=== PATIENT | female | born 2000 | race Two or more races ===

== ENCOUNTER → 2024-04-04 | Outpatient (CLI) | payer MEDICAID ==
[~2024-04-04] MED LIST: PREN-96 PO
[2024-04-04 10:38] LABS: Alanine Aminotransferase 22 U/L (7-40); Albumin 3.8 g/dL (3.2-4.8); Anion Gap 9 (5-15); Aspartate Aminotransferase 20 U/L (13-40); BUN/Creatinine Ratio 9.3 (10.0-20.0); Calcium 9.2 mg/dL (8.7-10.4); Carbon Dioxide 22 mmol/L (20-31); Glucose 80 mg/dL (74-106); Sodium 138 mmol/L (136-145)
[2024-04-04 10:39] LABS: Bilirubin, Total 0.3 mg/dL (0.2-1.0); Total Protein 6.6 g/dL (5.7-8.2)
[2024-04-04 10:49] LABS: Alkaline Phosphatase 144 U/L (46-116); Blood Urea Nitrogen 5 mg/dL (9-23); Chloride 107 mmol/L (98-107); Cholesterol 212 mg/dL (< 200); HDL Cholesterol 74 mg/dL (40-59); LDL Cholesterol 109 mg/dL (< 100); Potassium 3.5 mmol/L (3.5-5.1); Triglycerides 204 mg/dL (< 150)
[2024-04-05 09:50] LABS: Basophils # (auto) 0 10 ^3/uL (0-0.2); Eosinophils # (auto) 0 10 ^3/uL (0-0.8); Eosinophils % (auto) 0.5 % (0.0-7.0); Hematocrit 36.3 % (36.0-46.0); Monocytes # (auto) 0.5 10 ^3/uL (0-1.3)
[2024-04-05 09:51] LABS: Basophils % (auto) 0.2 % (0.0-2.0); Hemoglobin 11.7 g/dL (12.2-16.2); Lymphocytes # (auto) 1.3 10 ^3/uL (0.4-5.4); Lymphocytes % (auto) 17.4 % (10.0-50.0); Mean Corpuscular Hemoglobin 25.1 pg (28.0-32.0); Mean Corpuscular Hgb Conc. 32.2 g/dL (32.0-36.0); Mean Corpuscular Volume 78.1 fL (80.0-100.0); Monocytes % (auto) 6.7 % (0.0-12.0); Neutrophils # (auto) 5.4 10 ^3/uL (1.6-8.6); Neutrophils % (auto) 75.2 % (37.0-80.0); Platelet Count (auto) 299 10^3/uL (140-450); Red Blood Cells 4.65 10^6/uL (4.0-5.20); White Blood Cell 7.2 10^3/uL (4.4-10.8)
[2024-04-05 10:23] LABS: Thyroid Stimulating Hormone 0.64 uIU/mL (0.55-4.78)
[2024-04-05 11:36] LABS: Amphetamine Screen, Urine Neg (NEGATIVE); Barbiturate Scree,Urine Neg (NEGATIVE); Cannabinoid Screen, Urine Neg (NEGATIVE); Opiate Scree,Urine Neg (NEGATIVE); Phencyclidine Screen, Urine Neg (NEGATIVE)
[2024-04-05 11:37] LABS: Benzodiazephine Screen, Urine Neg (NEGATIVE); Cocaine Screen, Urine Neg (NEGATIVE)
[2024-04-06 08:06] LABS: Varicella Zoster IgG Antibody Reactive (Non Reactive)
[2024-04-06 17:06] LABS: Chlamydia Trachomatis, NAA Negative (Negative); Neisseria gonorrhoeae, NAA Negative (Negative)
[2024-04-07 14:06] LABS: QuantiFERON-TB Gold Plus Negative (Negative)
== END | disposition home or self-care (01) ==
LOC: LAB 06:43
PROVIDERS: ATTEND Obstetrics & Gynecology
DX: Z34.80 Encounter for supervision of other normal pregnancy, unspecified trimester (principal); Z31.430 Encounter of female for testing for genetic disease carrier status for procreative management; Z36.0 Encounter for antenatal screening for chromosomal anomalies; N39.0 Urinary tract infection, site not specified
CPT/HCPCS: 36415; 80053; 80061; 80307; 82951; 83036; 84439; 84443; 84702; 85025; 86592; 86703; 86762; 86787; 86850; 86900; 86901; 87086; 87340; 87902

== ENCOUNTER 2024-04-08 09:30 | Observation (INO) | payer MEDICAID ==
--- NOTE | 2024-04-08 10:31 | DVH ---
BIOPHYSICAL PROFILE HISTORY: Hx IUFD, RPR+, Hx pre-eclampsia TECHNIQUE: Multiple transabdominal real-time grayscale sonographic images through the gravid uterus of the fetus with duplex Doppler color flow and M-mode spectral analysis FINDINGS: BIOPHYSICAL PROFILE: breathing score: 2 movement score: 2 tone score: 2 Quantitative AMBER score: 2 (AMBER: 14.0 Cm.) Total score: 8/8 Single live fetus in breech presentation. heart rate 164 beats per minute. Posterior placenta without previa or abruption IMPRESSION: 1. Biophysical profile score: 8/8 HS:Y
[2024-04-08] MEDS ORDERED: PREN-96 PO (11:14)
--- NOTE | 2024-04-08 12:56 | DVHDS2 ---
Physician Discharge Progress N Final Diagnosis: Hx IUFD, RPR+, Hx pre-eclampsia Operations or Procedures: Operations or Procedures NST/BPP/AMBER all WNL Condition on Discharge: Stable Disposition: Home Discharge Instructions: Diet: Consistent carbohydrate Activity: Light activity Follow Up/Referral: As scheduled Medications: N/A Follow Up Care: Discharge Statement: "Patient was advised to return to the ER or call 911 if any headaches, dizziness, shortness of breath, chest pain, abdominal pain, bleeding, fevers, or worsening of medical condition. Patient was counseled about treatment plan, medications, possible side effects, patientverbalized understanding. All questions were answered to the best of my ability. This discharge took greater then 30 minutes in planning, reviewing documentation, counseling the patient, and discussing with other team members." SILVIA ANTON DO Apr 08, 2024 12:56
== END 2024-04-08 11:33 | disposition home or self-care (01) ==
LOC: LDRP 09:36 → UNDOADMOB 09:36 → LDRP 09:44 → UNDODISOB 11:33
PROVIDERS: ADMIT Obstetrics & Gynecology; ATTEND Obstetrics & Gynecology
DX: O09.293 Supervision of pregnancy with other poor reproductive or obstetric history, third trimester (principal); O14.93 Unspecified pre-eclampsia, third trimester; O62.9 Abnormality of forces of labor, unspecified; Z3A.31 31 weeks gestation of pregnancy; Z79.899 Other long term (current) drug therapy; Z87.891 Personal history of nicotine dependence
CPT/HCPCS: 59025; 76818; 81002; 94760; G0378

== ENCOUNTER 2024-04-15 11:19 | Observation (INO) | payer MEDICAID ==
[~2024-04-15] VITALS: Ht 163 cm; Wt 2.6 kg
--- NOTE | 2024-04-15 16:50 | DVH ---
BIOPHYSICAL PROFILE HISTORY: Hx IUFD TECHNIQUE: Multiple transabdominal real-time grayscale sonographic images through the gravid uterus of the fetus with duplex Doppler color flow and M-mode spectral analysis FINDINGS: BIOPHYSICAL PROFILE: breathing score: 2 movement score: 2 tone score: 2 Quantitative AMBER score: 2 (AMBER: 15.1 Cm.) Total score: 8/8 Single live fetus in breech presentation. heart rate 153 beats per minute. Posterior placenta without previa or abruption Double nuchal cord is present. IMPRESSION: 1. Biophysical profile score: 8/8 2. Double nuchal cord. HS:Y
--- NOTE | 2024-04-16 13:24 | DVHDS2 ---
Physician Discharge Progress N Final Diagnosis: iufd Operations or Procedures: Operations or Procedures nst,sono Condition on Discharge: Good Disposition: Home Discharge Instructions: Diet: Regular Activity: Light activity Medications: na Follow Up Care: Specialist: 3d Discharge Statement: "Patient was advised to return to the ER or call 911 if any headaches, dizziness, shortness of breath, chest pain, abdominal pain, bleeding, fevers, or worsening of medical condition. Patient was counseled about treatment plan, medications, possible side effects, patientverbalized understanding. All questions were answered to the best of my ability. This discharge took greater then 30 minutes in planning, reviewing documentation, counseling the patient, and discussing with other team members." JEREMY SUAREZ DO Apr 16, 2024 13:24
== END 2024-04-15 17:20 | disposition home or self-care (01) ==
LOC: UNDOADMOB 16:05 → LDRP 16:05 → UNDODISOB 17:20
PROVIDERS: ADMIT Obstetrics & Gynecology; ATTEND Obstetrics & Gynecology
DX: O36.4XX0 Maternal care for intrauterine death, not applicable or unspecified (principal); Z98.890 Other specified postprocedural states; Z79.899 Other long term (current) drug therapy; Z3A.32 32 weeks gestation of pregnancy
CPT/HCPCS: 59025; 76818; 81002; 94760; G0378

== ENCOUNTER 2024-04-22 10:45 | Observation (INO) | payer MEDICAID ==
[~2024-04-22] VITALS: Ht 162.6 cm; Wt 109.8 kg
--- NOTE | 2024-04-22 11:54 | DVH ---
CLINICAL HISTORY: Hx of IUFD and Pre-eclampsia COMPARISON: US BIOPHYSICAL PROFILE on DOS: 04/15/24, US BIOPHYSICAL PROFILE on DOS: 04/08/24 TECHNIQUE: biophysical profile was performed. Transabdominal sonographic images of the fetus we re obtained. FINDINGS: The fetus is in cephalic position. heart rate measures 138 BPM. Amniotic fluid index measures 16.7 cm. The placenta is posterior in position. BPP profile is an overall score of 8/8, with 2/2 points for breathing, with at least one episode of breathing over a 30 second duration during a 30 minute observation, 2/2 points for m ovements, with 3 or more discrete body or limb movements, 2/2 points for tone, with one or more episodes of extremity extension with return to flexion, or opening and closing of hand, and 2/ 2 points for amniotic fluid, with at least 1 pocket of amniotic fluid that measures 2 cm in 2 perpend icular planes. IMPRESSION: BPP score of 8/8.
--- NOTE | 2024-04-22 13:19 | DVHDS2 ---
Physician Discharge Progress N Final Diagnosis: Hx of IUFD 3rd trim Operations or Procedures: Operations or Procedures NST/BPP/AMBER all WNL Condition on Discharge: Stable Disposition: Home Discharge Instructions: Diet: Regular Activity: Light activity Follow Up/Referral: As scheduled Medications: N/A Follow Up Care: Discharge Statement: "Patient was advised to return to the ER or call 911 if any headaches, dizziness, shortness of breath, chest pain, abdominal pain, bleeding, fevers, or worsening of medical condition. Patient was counseled about treatment plan, medications, possible side effects, patientverbalized understanding. All questions were answered to the best of my ability. This discharge took greater then 30 minutes in planning, reviewing documentation, counseling the patient, and discussing with other team members." SILVIA ANTON DO Apr 22, 2024 13:19
== END 2024-04-22 13:05 | disposition home or self-care (01) ==
LOC: UNDOADMOB 10:45 → LDRP 10:45 → UNDODISOB 13:05
PROVIDERS: ADMIT Obstetrics & Gynecology; ATTEND Obstetrics & Gynecology
DX: O62.9 Abnormality of forces of labor, unspecified (principal); Z3A.33 33 weeks gestation of pregnancy; Z79.899 Other long term (current) drug therapy; Z98.890 Other specified postprocedural states
CPT/HCPCS: 59025; 76818; 81002; 86780; 94760; G0378

== ENCOUNTER 2024-04-29 08:21 | Observation (INO) | payer MEDICAID ==
--- NOTE | 2024-05-03 10:40 | DVH ---
BIOPHYSICAL PROFILE HISTORY: Hx IUFD, pre E +RPR TECHNIQUE: Multiple transabdominal real-time grayscale sonographic images through the gravid uterus of the fetus with duplex Doppler color flow and M-mode spectral analysis FINDINGS: BIOPHYSICAL PROFILE: breathing score: 2 movement score: 2 tone score: 2 Quantitative AMBER score: 2 (AMBER: 16.7 Cm.) Total score: 8/8 Single live fetus in cephalic presentation. heart rate 149 beats per minute. Posterior placenta without previa or abruption Suggestion of nuchal cord. IMPRESSION: 1. Biophysical profile score: 8/8 2. Suggestion of nuchal cord. HS:Y
--- NOTE | 2024-05-03 13:55 | DVHDS2 ---
Physician Discharge Progress N Final Diagnosis: hx of iufd Operations or Procedures: Operations or Procedures nst,sono Condition on Discharge: Good Disposition: Home Discharge Instructions: Diet: Regular Activity: No Restrictions, As Tolerated Medications: na Follow Up Care: Specialist: 3d Discharge Statement: "Patient was advised to return to the ER or call 911 if any headaches, dizziness, shortness of breath, chest pain, abdominal pain, bleeding, fevers, or worsening of medical condition. Patient was counseled about treatment plan, medications, possible side effects, patientverbalized understanding. All questions were answered to the best of my ability. This discharge took greater then 30 minutes in planning, reviewing documentation, counseling the patient, and discussing with other team members." JEREMY SUAREZ DO May 03, 2024 13:55
== END 2024-05-03 11:51 | disposition home or self-care (01) ==
LOC: LDRP 05-03 09:40 → UNDOADMOB 05-03 09:40 → LDRP 05-03 10:07
PROVIDERS: ADMIT Obstetrics & Gynecology; ATTEND Obstetrics & Gynecology
DX: O26.893 Other specified pregnancy related conditions, third trimester (principal); R10.31 Right lower quadrant pain; Z3A.34 34 weeks gestation of pregnancy; Z98.890 Other specified postprocedural states; Z79.899 Other long term (current) drug therapy
CPT/HCPCS: 59025; 76818; 81002; 94760; G0378

== ENCOUNTER 2024-04-29 18:18 | Observation (INO) | payer MEDICAID ==
[~2024-04-29] VITALS: Ht 167.6 cm; Wt 120.9 kg
[2024-04-29 18:33] VITALS: BP 124/71; PULSE 86; RESP 18; O2SAT 96
--- NOTE | 2024-04-30 07:41 | DVHDS2 ---
Physician Discharge Progress N Final Diagnosis: abd pain Operations or Procedures: Operations or Procedures nst,sono Condition on Discharge: Good Disposition: Home Discharge Instructions: Diet: Regular Activity: No Restrictions, As Tolerated Medications: na Follow Up Care: Specialist: 3d Discharge Statement: "Patient was advised to return to the ER or call 911 if any headaches, dizziness, shortness of breath, chest pain, abdominal pain, bleeding, fevers, or worsening of medical condition. Patient was counseled about treatment plan, medications, possible side effects, patientverbalized understanding. All questions were answered to the best of my ability. This discharge took greater then 30 minutes in planning, reviewing documentation, counseling the patient, and discussing with other team members." JEREMY SUAREZ DO Apr 30, 2024 07:41
== END 2024-04-29 20:12 | disposition home or self-care (01) ==
LOC: ER 18:18 → LDRP 18:42
PROVIDERS: ADMIT Obstetrics & Gynecology; ATTEND Obstetrics & Gynecology
DX: O62.9 Abnormality of forces of labor, unspecified (principal); Z98.890 Other specified postprocedural states; Z79.899 Other long term (current) drug therapy; Z3A.29 29 weeks gestation of pregnancy
CPT/HCPCS: 59025; 81002; 94760; G0378

== ENCOUNTER → 2024-05-06 | Outpatient (CLI) | payer MEDICAID ==
[2024-05-06 12:40] LABS: Basophils # (auto) 0 10 ^3/uL (0-0.2); Basophils % (auto) 0.1 % (0.0-2.0); Eosinophils # (auto) 0 10 ^3/uL (0-0.8); Eosinophils % (auto) 0.7 % (0.0-7.0); Hematocrit 33.1 % (36.0-46.0); Lymphocytes # (auto) 1.4 10 ^3/uL (0.4-5.4); Mean Corpuscular Hemoglobin 25.6 pg (28.0-32.0); Mean Corpuscular Hgb Conc. 33.2 g/dL (32.0-36.0); Mean Corpuscular Volume 77.3 fL (80.0-100.0); Monocytes # (auto) 0.6 10 ^3/uL (0-1.3); Monocytes % (auto) 8.2 % (0.0-12.0); Neutrophils # (auto) 5.2 10 ^3/uL (1.6-8.6); Nucleated Red Blood Cells % 0.2 %; Platelet Count (auto) 285 10^3/uL (140-450); Red Blood Cells 4.28 10^6/uL (4.0-5.20); Red Cell Distribution Width 16.9 % (11.8-14.3); White Blood Cell 7.3 10^3/uL (4.4-10.8)
[2024-05-08 07:06] LABS: Chlamydia Trachomatis, NAA Negative (Negative); Neisseria gonorrhoeae, NAA Negative (Negative)
== END | disposition home or self-care (01) ==
LOC: LAB 11:21
PROVIDERS: ATTEND Obstetrics & Gynecology
DX: Z34.80 Encounter for supervision of other normal pregnancy, unspecified trimester (principal); Z72.89 Other problems related to lifestyle
CPT/HCPCS: 36415; 85025; 86592

== ENCOUNTER 2024-05-10 07:55 | Observation (INO) | payer MEDICAID ==
--- NOTE | 2024-05-10 09:13 | DVH ---
BIOPHYSICAL PROFILE HISTORY: Hx- IUFD,PreE TECHNIQUE: Multiple transabdominal real-time grayscale sonographic images through the gravid uterus of the fetus with duplex Doppler color flow and M-mode spectral analysis FINDINGS: BIOPHYSICAL PROFILE: breathing score: 2 movement score: 2 tone score: 2 Quantitative AMBER score: 2 (AMBER: 14.7 Cm.) Total score: 8/8 The cervix is not seen. Single live fetus in cephalic presentation. heart rate 152 beats per minute. Grade 2 posterior placenta without previa or abruption Biophysical profile score 8/8 corresponding to an KIKE of 06/10/24 Possible nuchal cord is visualized. IMPRESSION: Biophysical profile score: 8/8 Possible nuchal cord is visualized.
--- NOTE | 2024-05-10 10:37 | DVHDS2 ---
Physician Discharge Progress N Final Diagnosis: Hx of IUFD Gestational HTN Nuchal cord suspected Secondary Diagnosis: Encounter for surveillance Operations or Procedures: Operations or Procedures NST/BPP AMBER all WNL Commentary: Commentary [address] [address] Ph: [phone] DIAGNOSTIC IMAGING Diagnostic Imaging Report : [id number] Signed PATIENT: CAROLYN OBRIENACCT: [id number] UNIT: [id number] : 2000 LOC: [facility] ROOM / BED: TRIAGE1 / A AGE / SEX: 23 / F ADM STATUS: ADM IN SERVICE [id number] ORDERING PHYSICIAN: SILVIA ANTON DO PROCEDURE(s): BPP - BIOPHYSICAL PROFILE REASON: Hx- IUFD,PreE ORDER NUMBER(s): [id number], ACCESSION NUMBER(s): [id number] BIOPHYSICAL PROFILE HISTORY: Hx- IUFD,PreE TECHNIQUE: Multiple transabdominal real-time grayscale sonographic images through the gravid uterus of the fetus with duplex Doppler color flow and M-mode spectral analysis FINDINGS: BIOPHYSICAL PROFILE: breathing score: 2 movement score: 2 tone score: 2 Quantitative AMBER score: 2 (AMBER: 14.7 Cm.) Total score: 8/8 The cervix is not seen. Single live fetus in cephalic presentation. heart rate 152 beats per minute. Grade 2 posterior placenta without previa or abruption Biophysical profile score 8/8 corresponding to an KIKE of 06/10/24 Possible nuchal cord is visualized. IMPRESSION: Biophysical profile score: 8/8 Possible nuchal cord is visualized. Condition on Discharge: Stable Disposition: Home Discharge Instructions: Diet: Regular Activity: No Restrictions, As Tolerated Follow Up/Referral: as scheduled Medications: N/A Follow Up Care: Discharge Statement: "Patient was advised to return to the ER or call 911 if any headaches, dizziness, shortness of breath, chest pain, abdominal pain, bleeding, fevers, or worsening of medical condition. Patient was counseled about treatment plan, medications, possible side effects, patientverbalized understanding. All questions were answered to the best of my ability. This discharge took greater then 30 minutes in planning, reviewing documentation, counseling the patient, and discussing with other team members." SILVIA ANTON DO May 10, 2024 10:36
== END 2024-05-10 09:30 | disposition home or self-care (01) ==
LOC: LDRP 07:55
PROVIDERS: ADMIT Obstetrics & Gynecology; ATTEND Obstetrics & Gynecology
DX: O13.3 Gestational [pregnancy-induced] hypertension without significant proteinuria, third trimester (principal); O36.4XX0 Maternal care for intrauterine death, not applicable or unspecified; O26.893 Other specified pregnancy related conditions, third trimester; N89.8 Other specified noninflammatory disorders of vagina; O14.93 Unspecified pre-eclampsia, third trimester; Z3A.35 35 weeks gestation of pregnancy; Z79.899 Other long term (current) drug therapy
CPT/HCPCS: 59025; 76818; 81002; 94760; G0378

== ENCOUNTER 2024-05-14 10:40 | Observation (INO) | payer MEDICAID ==
--- NOTE | 2024-05-14 11:22 | DVH ---
BIOPHYSICAL PROFILE HISTORY: HX-IUFD, Pre-E, +RPR TECHNIQUE: Multiple transabdominal real-time grayscale sonographic images through the gravid uterus of the fetus with duplex Doppler color flow and M-mode spectral analysis FINDINGS: BIOPHYSICAL PROFILE: breathing score: 2 movement score: 2 tone score: 2 Quantitative AMBER score: 2 (AMBER: 13.1 Cm.) Total score: 8/8 Single live fetus incephalic presentation. heart rate 155 beats per minute. Posterior placenta which is low-lying, located 1.9 cm from the cervical os. Biophysical profile score 8/8 IMPRESSION: 1. Biophysical profile score: 8/8. Low-lying placenta located 1.9 cm from the cervical os.
--- NOTE | 2024-05-14 20:51 | DVHDS2 ---
Physician Discharge Progress N Final Diagnosis: low lying placenta Secondary Diagnosis: testing for NCx1 (+RPR this and treated) hx of IUFD and PreE with last Operations or Procedures: Operations or Procedures 23yo IUP@36.1wks, Denies UCs/LOF/VB/FONSECA/vision changes/RUQ pain. Endorses +FM. VSS UA wnl NST reactive (last 20 min) 1L LR IV bolus given for dehydration kick counts and Preeclampsia warning signs reviewed. PTL precautions given and when to return to the hospital. Other Interventions Other Interventions [place] [address] Ph: [phone] DIAGNOSTIC IMAGING Diagnostic Imaging Report : [id number] Signed PATIENT: HODAN OBRIENT: [id number] UNIT: [id number] : 2000 LOC: [facility] ROOM / BED: [facility] / A AGE / SEX: 23 / F ADM STATUS: ADM IN SERVICE [id number] ORDERING PHYSICIAN: YAQUELIN GRULLON CNM PROCEDURE(s): BPP - BIOPHYSICAL PROFILE REASON: HX-IUFD, Pre-E, +RPR ORDER NUMBER(s): [id number], ACCESSION NUMBER(s): [id number] BIOPHYSICAL PROFILE HISTORY: HX-IUFD, Pre-E, +RPR TECHNIQUE: Multiple transabdominal real-time grayscale sonographic images through the gravid uterus of the fetus with duplex Doppler color flow and M-mode spectral analysis FINDINGS: BIOPHYSICAL PROFILE: breathing score: 2 movement score: 2 tone score: 2 Quantitative AMBER score: 2 (AMBER: 13.1 Cm.) Total score: 8/8 Single live fetus incephalic presentation. heart rate 155 beats per minute. Posterior placenta which is low-lying, located 1.9 cm from the cervical os. Biophysical profile score 8/8 IMPRESSION: 1. Biophysical profile score: 8/8. Low-lying placenta located 1.9 cm from the cervical os. ATED BY: HERLINDA PASCUAL MD DICTATED DATE/TIME: 05/14/24 1120 SIGNED BY: HERLINDA PASCUAL MD SIGNED DATE/TIME: 05/14/24 1120 CC: Condition on Discharge: Stable Disposition: Home Discharge Instructions: Diet: Regular Activity: See Comment Activity comment: pelvic rest Medications: see med list Follow Up Care: Specialist: f/u in 3 days Discharge Statement: "Patient was advised to return to the ER or call 911 if any headaches, dizziness, shortness of breath, chest pain, abdominal pain, bleeding, fevers, or worsening of medical condition. Patient was counseled about treatment plan, medications, possible side effects, patientverbalized understanding. All questions were answered to the best of my ability. This discharge took greater then 30 minutes in planning, reviewing documentation, counseling the patient, and discussing with other team members." YAQUELIN GRULLON CNM May 14, 2024 20:51
== END 2024-05-14 13:39 | disposition home or self-care (01) ==
LOC: LDRP 10:40 → OBSVTOIN 10:42 → INTOOBSV 10:42
PROVIDERS: ADMIT Obstetrics & Gynecology; ATTEND Obstetrics & Gynecology
DX: O44.43 Low lying placenta NOS or without hemorrhage, third trimester (principal); Z3A.36 36 weeks gestation of pregnancy; Z79.899 Other long term (current) drug therapy; Z98.890 Other specified postprocedural states
CPT/HCPCS: 59025; 76818; 81002; 94760; 96360; 96361; G0378

== ENCOUNTER 2024-05-17 11:47 | Observation (INO) | payer MEDICAID ==
[2024-05-17] MEDS ORDERED: DOCU1CAP46 PO (13:22)
[2024-05-17] MEDS ORDERED: ASPI-543 PO (13:22)
[2024-05-17] MEDS ORDERED: MAGN1CAP5 (13:22)
--- NOTE | 2024-05-17 13:27 | DVH ---
BIOPHYSICAL PROFILE HISTORY: Historu FD, Pre Eclampsia Comparison Study: None available at time of dictation. TECHNIQUE: Multiple real-time grayscale sonographic images through the gravid uterus of the fetus wi th duplex Doppler color flow and M-mode spectral analysis FINDINGS: BIOPHYSICAL PROFILE: breathing score: 2 movement score: 2 tone score: 2 Quantitative AMBER score: 2 (AMBER: 16.6 Cm.) Total score: 8/8 The cervix is not seen. Single live fetus in cephalic presentation. heart rate 165 beats per minute. Posterior placenta without previa or abruption Biophysical profile score 8/8 corresponding to an KIKE of 06/10/24 IMPRESSION: Biophysical profile score: 8/8
--- NOTE | 2024-05-17 13:44 | DVHDS2 ---
Physician Discharge Progress N Final Diagnosis: hx of pih Operations or Procedures: Operations or Procedures nst,sono Condition on Discharge: Good Disposition: Home Discharge Instructions: Diet: Consistent carbohydrate Activity: No Restrictions, As Tolerated Medications: na Follow Up Care: Specialist: 3d Discharge Statement: "Patient was advised to return to the ER or call 911 if any headaches, dizziness, shortness of breath, chest pain, abdominal pain, bleeding, fevers, or worsening of medical condition. Patient was counseled about treatment plan, medications, possible side effects, patientverbalized understanding. All questions were answered to the best of my ability. This discharge took greater then 30 minutes in planning, reviewing documentati on, counseling the patient, and discussing with other team members." JEREMY SUAREZ DO May 17, 2024 13:44
== END 2024-05-17 14:00 | disposition home or self-care (01) ==
LOC: LDRP 11:47
PROVIDERS: ADMIT Obstetrics & Gynecology; ATTEND Obstetrics & Gynecology
DX: O13.3 Gestational [pregnancy-induced] hypertension without significant proteinuria, third trimester (principal); O62.9 Abnormality of forces of labor, unspecified; O35.8XX0 Maternal care for other (suspected) fetal abnormality and damage, not applicable or unspecified; Z3A.36 36 weeks gestation of pregnancy; Z79.899 Other long term (current) drug therapy
CPT/HCPCS: 59025; 76818; 81002; 94760; G0378

== ENCOUNTER 2024-05-21 13:52 | Observation (INO) | payer MEDICAID ==
[~2024-05-21 13:52] MED LIST changes: +ASPI-543 PO; +DOCU1CAP46 PO; +MAGN1CAP5
--- NOTE | 2024-05-21 14:48 | DVH ---
BIOPHYSICAL PROFILE HISTORY: IUFD/Positive RPR TECHNIQUE: Multiple transabdominal real-time grayscale sonographic images through the gravid uterus of the fetus with duplex Doppler color flow and M-mode spectral analysis FINDINGS: BIOPHYSICAL PROFILE: breathing score: 2 movement score: 2 tone score: 2 Quantitative AMBER score: 2 (AMBER: 15 Cm.) Total score: 8 The cervix not well visualized. Single live fetus in cephalic presentation. heart rate 137 beats per minute. Posterior placenta without previa or abruption IMPRESSION: Biophysical profile score: 8
--- NOTE | 2024-05-21 19:04 | DVHDS2 ---
Physician Discharge Progress N Final Diagnosis: testing for hx IUFD, preE, +RPR Operations or Procedures: Operations or Procedures 23yo IUP@38.1wks VSS NST reactive BPP wnl FKC/labor precautions reviewed Condition on Discharge: Stable Disposition: Home Discharge Instructions: Diet: Regular Activity: No Restrictions, As Tolerated Medications: see med list Follow Up Care: Specialist: f/u in 3 days Discharge Statement: "Patient was advised to return to the ER or call 911 if any headaches, dizziness, shortness of breath, chest pain, abdominal pain, bleeding, fevers, or worsening of medical condition. Patient was counseled about treatment plan, medications, possible side effects, patientverbalized understanding. All questions were answered to the best of my ability. This discharge took greater then 30 minutes in planning, reviewing documentation, counseling the patient, and discussing with other team members." YAQUELIN GRULLON CNM May 21, 2024 19:04
== END 2024-05-21 15:25 | disposition home or self-care (01) ==
LOC: LDRP 13:52 → UNDOADMOB 13:52 → LDRP 14:08 → UNDODISOB 15:25
PROVIDERS: ADMIT Obstetrics & Gynecology; ATTEND Obstetrics & Gynecology
DX: O62.9 Abnormality of forces of labor, unspecified (principal); Z98.890 Other specified postprocedural states; Z79.899 Other long term (current) drug therapy; Z3A.38 38 weeks gestation of pregnancy
CPT/HCPCS: 59025; 76818; 81002; 94760; G0378

== ENCOUNTER 2024-05-22 17:48 | Observation (INO) | payer MEDICAID ==
--- NOTE | 2024-05-22 19:01 | DVHDS2 ---
Physician Discharge Progress N Final Diagnosis: uterine cramps, resolved Operations or Procedures: Operations or Procedures S: 23yo IUP@38.2wks presents to OB triage today with c/o uterine cramping this morning. She also had scant vaginal bleeding last night after sex, denies any VB today. Denies uterine cramps while in OB triage. Pt has hx of IUFD at 39wks, preE, +RPR. Was in OB triage on 05/21/24 for NST/BPP, BPP was wnl. Pt has not drank a lot of water today. Denies LOF/FONSECA/vision changes/RUQ pain. +FM. O: VSS NST reactive (FHR 140s, moderate variability, +accels, -decels) PO hydrated A: 23yo IUP@38.2wks Uterine cramps, resolved P: D/C home FKC/PreE/labor precautions reviewed PO hydrate regularly to avoid cramping due to dehydration Condition on Discharge: Stable Disposition: Home Discharge Instructions: Diet: Regular Activity: No Restrictions, As Tolerated Medications: see med list Follow Up Care: Specialist: f/u on 05/24/24 as scheduled for twice weekly NST/BPP Discharge Statement: "Patient was advised to return to the ER or call 911 if any headaches, dizziness, shortness of breath, chest pain, abdominal pain, bleeding, fevers, or worsening of medical condition. Patient was counseled about treatment plan, medications, possible side effects, patientverbalized understanding. All questions were answered to the best of my ability. This discharge took greater then 30 minutes in planning, reviewing documentation, counseling the patient, and discussing with other team members." YAQUELIN GRULLON CNM May 22, 2024 19:01
== END 2024-05-22 19:12 | disposition home or self-care (01) ==
LOC: LDRP 17:48
PROVIDERS: ADMIT Obstetrics & Gynecology; ATTEND Obstetrics & Gynecology
DX: O62.9 Abnormality of forces of labor, unspecified (principal); O46.93 Antepartum hemorrhage, unspecified, third trimester; Z98.890 Other specified postprocedural states; Z79.899 Other long term (current) drug therapy; Z3A.38 38 weeks gestation of pregnancy
CPT/HCPCS: 59025; 81002; 94760; G0378

== ENCOUNTER 2024-05-24 13:35 | Observation (INO) | payer MEDICAID ==
--- NOTE | 2024-05-24 14:31 | DVH ---
BIOPHYSICAL PROFILE HISTORY: hx of IUFD and +RPR TECHNIQUE: Multiple transabdominal real-time grayscale sonographic images through the gravid uterus of the fetus with duplex Doppler color flow and M-mode spectral analysis FINDINGS: BIOPHYSICAL PROFILE: breathing score: 2 movement score: 2 tone score: 2 Quantitative AMBER score: 2 (AMBER: 20.4 Cm.) Total score: 8 The cervix not well visualized. Single live fetus in cephalic presentation. heart rate 147 beats per minute. Posterior placenta without previa or abruption IMPRESSION: Biophysical profile score: 8
--- NOTE | 2024-05-24 16:02 | DVHDS2 ---
Physician Discharge Progress N Final Diagnosis: Hx of IUFD High risk Syphilis treated in Secondary Diagnosis: Encounter for surveillance Operations or Procedures: Operations or Procedures NST/BPP / AMBER all WNL Condition on Discharge: Stable Disposition: Home Discharge Instructions: Diet: Regular Activity: No Restrictions, As Tolerated Follow Up/Referral: As Scheduled Medications: N/A Follow Up Care: Discharge Statement: "Patient was advised to return to the ER or call 911 if any headaches, dizziness, shortness of breath, chest pain, abdominal pain, bleeding, fevers, or worsening of medical condition. Patient was counseled about treatment plan, medications, possible side effects, patientverbalized understanding. All questions were answered to the best of my ability. This discharge took greater then 30 minutes in planning, reviewing documentation, counseling the patient, and discussing with other team members." SILVIA ANTON DO May 24, 2024 16:02
== END 2024-05-24 14:25 | disposition home or self-care (01) ==
LOC: LDRP 13:35
PROVIDERS: ADMIT Obstetrics & Gynecology; ATTEND Obstetrics & Gynecology
DX: O09.93 Supervision of high risk pregnancy, unspecified, third trimester (principal); O98.113 Syphilis complicating pregnancy, third trimester; A53.9 Syphilis, unspecified; O26.893 Other specified pregnancy related conditions, third trimester; N89.8 Other specified noninflammatory disorders of vagina; Z3A.38 38 weeks gestation of pregnancy; Z87.59 Personal history of other complications of pregnancy, childbirth and the puerperium; Z79.899 Other long term (current) drug therapy
CPT/HCPCS: 59025; 76818; 81002; 94760; G0378

== ENCOUNTER 2024-05-27 08:05 | Observation (INO) | payer MEDICAID ==
--- NOTE | 2024-05-27 09:28 | DVH ---
BIOPHYSICAL PROFILE HISTORY: Hx IUFD, +RPR, PreE Comparison Study: None TECHNIQUE: Multiple real-time grayscale sonographic images through the gravid uterus of the fetus wi th duplex Doppler color flow and M-mode spectral analysis FINDINGS: BIOPHYSICAL PROFILE: breathing score: 2 movement score: 2 tone score: 2 Quantitative AMBER score: 2 (AMBER: 19.5 Cm.) Total score: 8 The cervix is not visualized Single live fetus in cephalic presentation. heart rate 158 beats per minute. Posterior placenta without previa or abruption IMPRESSION: Biophysical profile score: 8
--- NOTE | 2024-05-27 09:37 | DVH ---
LIMITED OB ULTRASOUND > 14 WKS: HISTORY: History of prior IUFD, positive RPR, preeclampsia. TECHNIQUE: Multiple real-time grayscale images of the gravid uterus with duplex Doppler color flow an d M-mode spectral analysis. COMPARISON: BPP exams, most recently 05/27/2024. Prior OB ultrasound dated 01/18/2024. FINDINGS: IUP single live fetus at 38 weeks 3 days based on composite averages of the BPD, head circumference, abdominal circumference and femur length. Estimated weight 3541 grams. heart rate 150 beats per minute. AMBER 19.5 cm Cervix is not 12 visualized. Cephalic presentation Grade 3 posterior placenta without previa or abruption, in posterior position. IMPRESSION: IUP single live fetus at 38 weeks 3 days AUA corresponding to an KIKE of 06/07/2024.
[2024-05-27 09:50] LABS: Urine Bacteria None Seen /hpf (None Seen)
[2024-05-27 09:57] LABS: Eosinophils # (auto) 0.1 10 ^3/uL (0-0.8); Hemoglobin 11.6 g/dL (12.2-16.2); Lymphocytes # (auto) 1.5 10 ^3/uL (0.4-5.4); Monocytes # (auto) 0.7 10 ^3/uL (0-1.3)
[2024-05-27 10:00] LABS: Basophils # (auto) 0 10 ^3/uL (0-0.2); Basophils % (auto) 0.4 % (0.0-2.0); Eosinophils % (auto) 0.9 % (0.0-7.0); Hematocrit 35.6 % (36.0-46.0); Lymphocytes % (auto) 17.3 % (10.0-50.0); Mean Corpuscular Hemoglobin 25.3 pg (28.0-32.0); Mean Corpuscular Hgb Conc. 32.6 g/dL (32.0-36.0); Mean Corpuscular Volume 77.8 fL (80.0-100.0); Monocytes % (auto) 8.1 % (0.0-12.0); Neutrophils # (auto) 6.2 10 ^3/uL (1.6-8.6); Neutrophils % (auto) 73.3 % (37.0-80.0); Nucleated Red Blood Cells % 0.1 %; Platelet Count (auto) 306 10^3/uL (140-450); Red Blood Cells 4.57 10^6/uL (4.0-5.20); Red Cell Distribution Width 16.8 % (11.8-14.3); White Blood Cell 8.4 10^3/uL (4.4-10.8)
[2024-05-27 10:06] LABS: Urine Blood Negative /uL (Negative); Urine Clarity Clear (Clear); Urine Color Light-Yellow (Yellow); Urine Protein, UAD TRACE (Negative); Urine Specific Gravity 1.017 (1.001-1.035); Urine Squamous Epithelial Cell FEW /hpf (<5); Urine Urobilinogen Normal (Negative); Urine WBC 1 /HPF (0-5); Urine pH 6.5 (5.0-9.0)
[2024-05-27 10:15] LABS: INR 0.92 (0.9-1.15); Partial Thromboplastin Time 25.5 SEC (24.5-34.5); Prothrombin Time 9.8 sec (9.3-11.8)
[2024-05-27 10:18] LABS: Alanine Aminotransferase 12 U/L (7-40); Albumin 3.7 g/dL (3.2-4.8); Anion Gap 8 (5-15); Aspartate Aminotransferase 14 U/L (13-40); BUN/Creatinine Ratio 19.2 (10.0-20.0); Blood Urea Nitrogen 10 mg/dL (9-23); Calcium 9.1 mg/dL (8.7-10.4); Carbon Dioxide 22 mmol/L (20-31); Chloride 107 mmol/L (98-107); Glucose 86 mg/dL (74-106); Sodium 137 mmol/L (136-145); Total Protein 5.9 g/dL (5.7-8.2)
[2024-05-27 10:25] LABS: Alkaline Phosphatase 269 U/L (46-116); Bilirubin, Total 0.3 mg/dL (0.2-1.0)
[2024-05-27 10:27] LABS: Amphetamine Screen, Urine Neg (NEGATIVE); Barbiturate Scree,Urine Neg (NEGATIVE); Benzodiazephine Screen, Urine Neg (NEGATIVE); Cannabinoid Screen, Urine Neg (NEGATIVE); Cocaine Screen, Urine Neg (NEGATIVE); Opiate Scree,Urine Neg (NEGATIVE); Phencyclidine Screen, Urine Neg (NEGATIVE)
[2024-05-27 10:32] LABS: Protein, Urine 26.9 mg/dL (1-14)
[2024-05-27 10:35] LABS: Creatinine, Urine 115.78 mg/dL (30.0-125.0); Urine Protein/Creatinine Ratio 0.23
[2024-05-27 10:49] LABS: Uric Acid 3.5 mg/dL (3.1-7.8)
--- NOTE | 2024-05-28 15:10 | DVHDS2 ---
Physician Discharge Progress N Final Diagnosis: hx of iufd Operations or Procedures: Operations or Procedures nst,labs ,sono Other Interventions Other Interventions pt was eval by dr alvarez over the phone fo induction of labor and per nursing staff dr alvarez advised that she is to be induced on monday not today bc there is no indication fro early induction subseq she was sched for monday night induction and she was discharged home Condition on Discharge: Good Disposition: Home Discharge Instructions: Diet: Regular Activity: No Restrictions, As Tolerated Medications: na Follow Up Care: Specialist: fu on monday for induction Discharge Statement: "Patient was advised to return to the ER or call 911 if any headaches, dizziness, shortness of breath, chest pain, abdominal pain, bleeding, fevers, or worsening of medical condition. Patient was counseled about treatment plan, medications, possible side effects, patientverbalized understanding. All questions were answered to the best of my ability. This discharge took greater then 30 minutes in planning, reviewing documentation, counseling the patient, and discussing with other team members." JEREMY SUAREZ DO May 28, 2024 15:09
== END 2024-05-27 10:18 | disposition home or self-care (01) ==
LOC: LDRP 08:05 → UNDOADMOB 08:05 → LDRP 08:28 → UNDODISOB 10:18
PROVIDERS: ADMIT Obstetrics & Gynecology; ATTEND Obstetrics & Gynecology
DX: O99.891 Other specified diseases and conditions complicating pregnancy (principal); M54.9 Dorsalgia, unspecified; O62.9 Abnormality of forces of labor, unspecified; O13.3 Gestational [pregnancy-induced] hypertension without significant proteinuria, third trimester; Z98.890 Other specified postprocedural states; Z79.899 Other long term (current) drug therapy; Z3A.38 38 weeks gestation of pregnancy
CPT/HCPCS: 36415; 59025; 76805; 76818; 80053; 80307; 81001; 81002; 82570; 84156; 84550; 85025; 85610; 85730; 94760; G0378

== ENCOUNTER 2024-05-30 08:47 | Observation (INO) | payer MEDICAID ==
--- NOTE | 2024-05-30 10:11 | DVH ---
BIOPHYSICAL PROFILE HISTORY: HX IUFD/HX Pre-e TECHNIQUE: Multiple transabdominal real-time grayscale sonographic images through the gravid uterus of the fetus with duplex Doppler color flow and M-mode spectral analysis FINDINGS: BIOPHYSICAL PROFILE: breathing score: 2 movement score: 2 tone score: 2 Quantitative AMBER score: 2 (AMBER: 27.5 Cm.) This previously measured 19.5 cm on prior ultrasound from 05/27/2024. Total score: 8/8. The cervix is not visualized Single live fetus in cephalic presentation. heart rate 157 beats per minute. Posterior placenta without previa or abruption IMPRESSION: 1. Biophysical profile score: 8/8. AMBER measures 27.5 cm previously measuring 19.5 cm on the prior ult rasound from 05/27/2024.
--- NOTE | 2024-05-30 16:46 | DVHDS2 ---
Physician Discharge Progress N Final Diagnosis: hx of iufd,preeclampsia Operations or Procedures: Operations or Procedures nst,sono Condition on Discharge: Good Disposition: Home Discharge Instructions: Diet: Regular, Consistent carbohydrate Activity: No Restrictions, As Tolerated Medications: na Follow Up Care: Specialist: ind monday Discharge Statement: "Patient was advised to return to the ER or call 911 if any headaches, dizziness, shortness of breath, chest pain, abdominal pain, bleeding, fevers, or worsening of medical condition. Patient was counseled about treatment plan, medications, possible side effects, patientverbalized understanding. All questions were answered to the best of my ability. This discharge took greater then 30 minutes in planning, reviewing documentation, counseling the patient, and discussing with other team members." JEREMY SUAREZ DO May 30, 2024 16:46
== END 2024-05-30 11:08 | disposition home or self-care (01) ==
LOC: LDRP 08:47 → UNDOADMOB 08:47 → LDRP 09:06 → UNDODISOB 11:08
PROVIDERS: ADMIT Obstetrics & Gynecology; ATTEND Obstetrics & Gynecology
DX: O14.93 Unspecified pre-eclampsia, third trimester (principal); Z3A.38 38 weeks gestation of pregnancy
CPT/HCPCS: 59025; 76818; 81002; 94760; G0378

== ENCOUNTER 2024-06-06 09:11 | Emergency (ER) | payer MEDICAID ==
[~2024-06-06] VITALS: Ht 163 cm; Wt 120.7 kg
[~2024-06-06 09:11] MED LIST changes: -ASPI-543 PO; -MAGN1CAP5
[2024-06-06 10:03] VITALS: BP 136/74; PULSE 75; RESP 16; TEMP 98.2; O2SAT 96
--- NOTE | 2024-06-06 10:25 | ED.PDOC ---
Musculoskeletal HPI Comments A 23 YEAR OLD FEMALE PRESENTS TO THE ED WITH CHIEF COMPLAINT OF LEG SWELLING. PATIENT REPORTS THAT SHE HAD RECENTLY GIVEN ON MONDAY, HOWEVER, SINCE THEN SHE HAS BEEN EXPERIENCING BILATERAL LEG AND FOOT SWELLING, RIGHT SIDE WORSE THAN LEFT. PATIENT DENIES ANY PAIN, REDNESS, NUMBNESS, WEAKNESS, INJURY, SOB, OR CHEST PAIN. NO OTHER SYMPTOMS REPORTED AT THIS TIME OF CARE. Chief Complaint: Lower Extremity Time Seen by MD: 10:22 Reviewed Notes: Nurses Notes, Medications, Allergies Allergies: Coded Allergies: NO KNOWN ALLERGIES (Unverified , 04/22/24) Home Meds Active Scripts Potassium Chloride (Potassium Chloride ER) 10 Meq Tab, 10 MEQ PO DAILY, #10 TAB Prov:LORI RIVERA 06/06/24 Furosemide (Lasix) 40 Mg Tab, 40 MG PO BS PRN for 7 Days, #10 TAB Prov:LORI RIVERA 06/06/24 Reported Medications Docusate Sodium (DOCQLACE) 100 Mg Cap, 100 MG PO, CAP 05/17/24 Vit W/ Ferrous Fumara ( One Daily) Daily Tab, 1 TAB PO DAILY, #90 TAB 3 Refills 04/08/24 Discontinued Reported Medications Magnesium Bisglycinate (Magnesium Glycinate) 100 Mg Cap 05/17/24 Aspirin (Aspir-Low) 81 Mg Tab, 81 MG PO DAILY for 30 Days, MG 05/17/24 Information Source: Patient Mode of Arrival: Wheelchair Location: Right Extremity Location: Foot, Leg Timing: Days Prehospital treatment: None Severity: Moderate Able to Move Extremity: Yes Bear Weight: Fully Pain: None Mechanism: Spontaneous Circumstances: Spontaneous Onset of Symptoms: Spontaneous Symptoms: Swelling DVT Risk Factors: NONE Associated signs and symptoms: None Past Medical History PAST MEDICAL HISTORY: Denies Surgical History: Denies all surgeries 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 TEACHER History: No Pertinent 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 TEACHER History Family History Family History: Reviewed,noncontributory to illness Social History Smoker: Non-Smoker Alcohol: Denies ETOH Use Drugs: Denies Drug Use Lives In: Home Constitutional: denies: chills, diaphoresis, fatigue, fever, malaise, sweats, weakness, others EENTM: denies: blurred vision, double vision, ear bleeding, ear discharge, ear drainage, ear pain, ear ringing, eye pain, eye redness, hearing loss, mouth pain, mouth swelling, nasal discharge, nose bleeding, nose congestion, nose pain, photophobia, tearing, throat pain, throat swelling, voice changes, others Respiratory: denies: cough, hemoptysis, orthopnea, SOB at rest, shortness of breath, SOB with excertion, stridor, wheezing, others Cardiovascular: denies: chest pain, dizzy spells, diaphoresis, Dyspnea on exertion, edema, irregular heart beat, left arm pain, lightheadedness, palpitations, PND, syncope, others Gastrointestinal: denies: abdomen distended, abdominal pain, blood streaked bowels, constipated, diarrhea, dysphagia, difficulty swallowing, hematemesis, melena, nausea, poor appetite, poor fluid intake, rectal bleeding, rectal pain, vomiting, others Genitourinary: denies: abnormal vagina bleeding, burning, dyspareunia, dysuria, flank pain, frequency, hematuria, incontinence, pain, , vagina discharge, urgency, others Neurological: denies: dizziness, fainting, headache, left sided numbness, left sided weakness, numbness, paresthesia, pre-existing deficit, right sided numbness, right sided weakness, seizure, speech problems, tingling, tremors, weakness, others Musculoskeletal: reports: joint pain, joint swelling, others (RT LEG SWELLING); denies: back pain, gout, muscle pain, muscle stiffness, neck pain Integumetry: denies: bruises, change in color, change in hair/nails, dryness, laceration, lesions, lumps, rash, wounds, others Allergic/Immunocompromised: denies: Difficulty Healing, Frequent Infections, Hives, Itching, others Hematologic/Lymphatic: denies: anemia, blood clots, easy bleeding, easy bruising, swollen glands, others Endocrine: denies: excessive hunger, excessive sweating, excessive thirst, excessive urination, flushing, intolerance to cold, intolerance to heat, unexplained weight gain, unexplained weight loss, others Psychiatric: denies: anxiety, bipolar disorder, depression, hopeless, panic disorder, schizophrenia, sleepless, suicidal, others All Other Systems: Reviewed and Negative Physical Exam General Appearance: No Apparent Distress, Obese HEENT: Normal ENT Inspection, PERRL/EOMI Neck: Full Range of Motion, Non-Tender, Normal, Normal Inspection Respiratory: Chest Non-Tender, Lungs Clear, No Accessory Muscle Use, No Resp iratory Distress, Normal Breath Sounds Cardiovascular: No Edema, No JVD, No Murmur, No Gallop, Normal Peripheral Pulses, Regular Rate/Rhythm Breast Exam: Deferred Gastrointestinal: No Organomegaly, Non Tender, No Pulsatile Mass, Normal Bowel Sounds, Soft Genitalia: Deferred Pelvic: Deferred Rectal: Deferred Extremities: No calf tenderness, Normal capillary refill, Normal range of motion, Pedal edema (1+ PEDAL EDEMA ON BILATERAL ANKLE. ), Swelling (BILATERAL LOWER EXTREMITY, R>L, NO ERYTHEMA AND DVT SIGNS. ) Musculoskeletal : Apperance: Normal Neurologic: Alert, dynamo repairer II-XII nml as Tested, No Motor Deficits, Normal Affect, Normal Mood, No Sensory Deficits Cerebellar Function: Normal Reflexes: Normal Skin: Dry, Normal Color, Warm Peripheral Pulses: 2+ carotid (R), 2+ carotid (L), 2+ dorsalis pedis (R), 2+ dorsalis pedis (L) Lymphatic: No Adenopathy Was a procedure done? Was a procedure done?: No Differential Diagnosis EXT Differential Diagnosis: Deep Vein Thrombosis, Other (FLUID OVERLOAD) X-Ray, Labs, Meds, VS Vital Signs Date Time Temp Pulse Resp B/P (MAP) Pulse Ox O2 Delivery O2 Flow Rate FiO2 06/06/24 10:03 98.2 75 16 136/74 (94) 96 98.2 06/06/24 10:03 75 16 96 06/06/24 09:50 75 06/06/24 09:42 98.2 75 16 136/74 (94) 96 RT DVT US: FINDINGS: The right common femoral, superficial femoral, popliteal, posterior tibial veins appear patent with normal augmentation, phasicity, compressibility and color- flow. . The left common femoral vein appears patent. IMPRESSION: 1. No sonographic evidence of DVT in the right leg. X-Ray, Labs, Meds, VS Comment EXTERNAL MEDICAL RECORDS REVIEWED: [NONE] INDEPENDENT HISTORIANS: [NONE] SOCIAL DETERMINANTS OF HEALTH: [NONE] LABS ORDERED: NONE REVIEWED AND INTERPRETED RESULTS: RT LOWER EXT DVT US, PER US TECH THERE IS NO DVT NOTED. IMAGING ORDERED: RT LOWER EXT DVT US TREATMENTS ORDERED: ELEVATED LOWER EXTREMITY. PROCEDURES PERFORMED: NONE CRITICAL CARE TIME: NONE I HAVE DISCUSSED THE PATIENT WITH THE ATTENDING PHYSICIAN DR. GONZALEZ AND HE AGREES WITH THE PATIENT'S PLAN OF CARE AND DISPOSITION. BASED ON HISTORY OF PRESENT ILLNESS, AND PHYSICAL EXAM, PATIENT WILL BE DISCHARGED HOME. DISCUSSED PLAN FOR DISCHARGE HOME WITH RX [facility]. MEDICATION WARNINGS GIVEN. SHARED DECISION MAKING: DISCUSSED WITH PATIENT THAT THEIR WORKUP WAS NORMAL. PATIENT INSTRUCTED TO FOLLOW UP WITH PRIMARY CARE PROVIDER IN 1-2 DAYS FOR RE- EVALUATION OF SYMPTOMS. PATIENT VERBALIZES UNDERSTANDING TO RETURN TO ED FOR NEW OR WORSENING SYMPTOMS OR IF FOLLOW UP WITH PCP CANNOT BE OBTAINED. PATIENT FEELS COMFORTABLE GOING HOME AT THIS TIME. ALL QUESTIONS ADDRESSED AT TIME OF DISCHARGE. Time of 1ST Reevaluation: 11:11 Reevaluation 1ST: Improved Patient Education/Counseling: Diagnosis, Treatment, Need For Follow Up Family Education/Counseling: Diagnosis, Treatment, Need For Follow Up Medical Screening: No EMC Exist At This Time Departure 1 Departure Time of Disposition: 11:11 Impression: Primary Impression: edema Disposition: HOME / SELF CARE / HOMELESS Condition: Stable Additional Instructions: FOLLOW-UP WITH PCP IN 1 TO 2 DAYS. TAKE MEDICATIONS PRESCRIBED. RETURN TO ED FOR ANY NEW OR WORSENING SYMPTOMS. e-Prescriptions Potassium Chloride (Potassium Chloride ER) 10 Meq Tab 10 MEQ PO DAILY, #10 TAB Prov: LORI RIVERA 06/06/24 Furosemide (Lasix) 40 Mg Tab 40 MG PO BS PRN for 7 Days, #10 TAB Prov: LORI RIVERA 06/06/24 Discharged With: Self Critical Care Note Critical Care Time?: No Stability Stability form required: No Heart Score Heart Score: Heart Score Response (Comments) Value History N/A 0 EKG N/A 0 Age N/A 0 Risk Factors N/A 0 Troponin N/A 0 Total 0 I personally scribed for LORI RIVERA ([email or web address]) on 06/06/24 at 10:25. Electronically submitted by David Earl ([email or web address]). I personally scribed for LORI RIVERA ([email or web address]) on 06/06/24 at 10:53. Electronically submitted by David Earl ([email or web address]). I personally scribed for LORI RIVERA ([email or web address]) on 06/06/24 at 11:03. Electronically submitted by David Earl ([email or web address]). LORI RIVERA Jun 06, 2024 10:25
--- NOTE | 2024-06-06 11:01 | DVH ---
RIGHT LOWER EXTREMITY VENOUS DOPPLER CLINICAL HISTORY: RIGHT LOWER LEG SWELLING X 3 DAYS TECHNIQUE: Right lower extremity venous doppler study was performed. COMPARISON: None FINDINGS: The right common femoral, superficial femoral, popliteal, posterior tibial veins appear patent with n ormal augmentation, phasicity, compressibility and color-flow. . The left common femoral vein appears patent. IMPRESSION: 1. No sonographic evidence of DVT in the right leg. HS:Y
[2024-06-06] MEDS ORDERED: POTA-228 PO (11:06)
[2024-06-06] MEDS ORDERED: FURO1TAB31 PO (11:06)
== END 2024-06-06 11:12 | disposition home or self-care (01) ==
LOC: ER 09:11
DX: O90.89 Other complications of the puerperium, not elsewhere classified (principal); R60.0 Localized edema; Z79.82 Long term (current) use of aspirin; Z79.899 Other long term (current) drug therapy
CPT/HCPCS: 93971

== ENCOUNTER → 2024-08-28 | Outpatient (CLI) | payer MEDICAID ==
[~2024-08-28] MED LIST changes: +FURO1TAB31 PO; +POTA-228 PO
== END | disposition home or self-care (01) ==
LOC: LAB 11:45
PROVIDERS: ATTEND Obstetrics & Gynecology
DX: R87.612 Low grade squamous intraepithelial lesion on cytologic smear of cervix (LGSIL) (principal)